=== PATIENT | female | born 1980 | race Caucasian/White ===

== ENCOUNTER 2024-05-02 13:59 | Inpatient (IN) ==
[2024-05-02 14:27] LABS: ABS Basophils 0.1 10^3/uL (0.0-0.1); ABS Eosinophils 0.2 10^3/uL (0.0-0.5); ABS Lymphocytes 2.2 10^3/uL (1.0-4.8); ABS Monocytes 0.9 10^3/uL (0.0-0.9); ABS Neutrophils 9.1 10^3/uL (1.5-7.6); Eosinophil % 1.3 %; Hematocrit 38.3 % (35-45); Hemoglobin 12.8 g/dL (11.5-14.3); Lymphocyte % 17.9 %; Mean Corpuscular Hemoglobin 31.4 pg (27-33); Mean Corpuscular Hgb Conc 33.4 g/dL (31-36); Mean Corpuscular Volume 93.9 fL (80-97); Mean Platelet Volume 7.1 fL (7.5-11.2); Platelet Count 312 10^3/uL (150-450); Red Blood Count 4.08 10^6/uL (3.63-4.92); Red Cell Distribution Width 13.3 % (12-17); White Blood Count 12.5 10^3/uL (3.8-11.8)
[2024-05-02 14:38] LABS: INR 1.14 (0.83-1.13)
[2024-05-02 15:52] LABS: Albumin 4.1 g/dL (3.2-5.2); Albumin/Globulin Ratio 1.5 (1-3); Creatinine, Serum 0.81 mg/dL (0.51-0.95); Globulin 2.8 g/dL (2-4); Total Bilirubin 0.9 mg/dL (0.2-1.0); Total Protein 6.9 g/dL (6.4-8.9); eGFR CKD-EPI 92.3 (>60)
[2024-05-02 16:05] LABS: High Sensitivity Troponin 1 Hr 9 pg/mL (<15)
[2024-05-02 16:10] LABS: Potassium 3.9 mmol/L (3.5-5.0)
[2024-05-02] MEDS: Iohexol 350 (CONTRAST) 500 ML MDV IV ONE (19:17)
[2024-05-02] MEDS ORDERED: Al Hydrox/Mg Hydrox/Simet LIQ 30 ML UDC PO PRN (19:53)
[2024-05-02] MEDS: Heparin 5000 UNITS/ML 1 mL VIAL IV SCH (20:02)
[2024-05-02] MEDS: Heparin DRIP 25,000 UNITS BAG 25,000 UNITS/250 ML BAG IV SCH (20:06)
[2024-05-02] MEDS: fentaNYL 100 mcg/2 ml 50 MCG/ML VIAL IV SLOW PU ONE (20:28)
[2024-05-02] MEDS: cefTRIAXone 1 gm/50 mL D5W 1 GM/50 ML BAG IV SCH (20:46)
[2024-05-02] MEDS: Azithromycin 500 mg/250 ml NS 500 MG/250 ML BAG IVPB SCH ×2 (21:37→21:53)
[2024-05-03 02:48] LABS: ABS Basophils 0.1 10^3/uL (0.0-0.1); ABS Eosinophils 0.3 10^3/uL (0.0-0.5); ABS Lymphocytes 3.4 10^3/uL (1.0-4.8); ABS Monocytes 0.9 10^3/uL (0.0-0.9); ABS Neutrophils 5.4 10^3/uL (1.5-7.6); Eosinophil % 2.7 %; Hematocrit 33.9 % (35-45); Hemoglobin 11.9 g/dL (11.5-14.3); Mean Corpuscular Hemoglobin 32.9 pg (27-33); Mean Corpuscular Hgb Conc 35.1 g/dL (31-36); Mean Corpuscular Volume 93.7 fL (80-97); Mean Platelet Volume 7.1 fL (7.5-11.2); Platelet Count 264 10^3/uL (150-450); Red Blood Count 3.61 10^6/uL (3.63-4.92); Red Cell Distribution Width 13.1 % (12-17)
[2024-05-03 03:29] LABS: Creatinine, Serum 0.89 mg/dL (0.51-0.95); eGFR CKD-EPI 82.4 (>60)
[2024-05-03 05:16] LABS: C Reactive Protein 128.06 mg/L (<8.01)
[2024-05-03 05:49] LABS: Calcium 8.5 mg/dL (8.6-10.3); Creatinine, Serum 0.91 mg/dL (0.51-0.95); eGFR CKD-EPI 80.3 (>60)
[2024-05-03] MEDS: Fluticasone NASAL SPRAY 50MCG 16 gm SPRAY BTL INTRANASAL SCH (07:57)
[2024-05-03 08:20] LABS: Hematocrit 34.6 % (35-45); Hemoglobin 11.5 g/dL (11.5-14.3); Mean Corpuscular Hemoglobin 31.5 pg (27-33); Mean Corpuscular Hgb Conc 33.3 g/dL (31-36); Mean Corpuscular Volume 94.7 fL (80-97); Mean Platelet Volume 7.2 fL (7.5-11.2); Platelet Count 281 10^3/uL (150-450); Red Blood Count 3.66 10^6/uL (3.63-4.92); Red Cell Distribution Width 12.7 % (12-17); White Blood Count 9.1 10^3/uL (3.8-11.8)
[2024-05-03 08:41] LABS: ABS Basophils 0.1 10^3/uL (0.0-0.1); ABS Eosinophils 0.3 10^3/uL (0.0-0.5); ABS Monocytes 0.7 10^3/uL (0.0-0.9); Eosinophil % 3.1 %; Lymphocyte % 32.6 %
[2024-05-03] MEDS ORDERED: Sulfur Hexaflouride MICROSPHR 25 MG VIAL ONE (08:51)
[2024-05-03] MEDS: Sulfur Hexaflouride MICROSPHR 25 MG VIAL IV ONE (09:01)
[2024-05-03 11:29] LABS: Urine Appearance Clear; Urine Bilirubin Negative (Negative); Urine Blood Negative (Negative); Urine Color Light-Yellow; Urine Glucose Negative (Negative); Urine Ketones Negative (Negative); Urine Nitrite Negative (Negative); Urine Protein Negative (Negative); Urine Specific Gravity 1.008 (1.002-1.030); Urine Urobilinogen Negative (Negative)
[2024-05-03] MEDS ORDERED: Lorazepam PYXIS KEY PRN (12:14)
[2024-05-03] MEDS: LORazepam 2 mg VIAL 1 ml IV PUSH ONE (12:50)
[2024-05-03 17:01] LABS: HCG Pregnancy 1.2 mIU/mL
[2024-05-04 06:50] LABS: ABS Basophils 0.1 10^3/uL (0.0-0.1); ABS Eosinophils 0.3 10^3/uL (0.0-0.5); ABS Lymphocytes 1.9 10^3/uL (1.0-4.8); ABS Monocytes 0.6 10^3/uL (0.0-0.9); ABS Neutrophils 4.2 10^3/uL (1.5-7.6); Hematocrit 35.4 % (35-45); Hemoglobin 12.4 g/dL (11.5-14.3); Lymphocyte % 27.2 %; Mean Corpuscular Volume 94.2 fL (80-97); Mean Platelet Volume 7.5 fL (7.5-11.2); Platelet Count 320 10^3/uL (150-450); Red Blood Count 3.76 10^6/uL (3.63-4.92); Red Cell Distribution Width 12.9 % (12-17); White Blood Count 7.1 10^3/uL (3.8-11.8)
[2024-05-04 07:01] LABS: Calcium 8.8 mg/dL (8.6-10.3); Creatinine, Serum 0.86 mg/dL (0.51-0.95); Potassium 4.5 mmol/L (3.5-5.0); eGFR CKD-EPI 85.9 (>60)
[2024-05-04] MEDS: Nicotine PATCH 14 MG/24 HR PATCH TRANSDERM SCH (09:17)
[2024-05-04 13:59] VITALS: BP 115/74
== END 2024-05-04 14:25 | disposition home or self-care (01) | DRG 134 ==
LOC: ED 13:59 → SUATTDRO 19:47 → EDHOLD 19:47 → ICU 20:06 → MED 05-03 20:15
PROVIDERS: ADMIT Internal Medicine; ATTEND Internal Medicine